=== PATIENT | male | born 1955 | race Hispanic/Latino ===

== ENCOUNTER 2021-10-31 15:39 | Inpatient (IN) | payer MEDICARE ==
[~2021-10-31] VITALS: Ht 162.6 cm; Wt 55.5 kg
[2021-10-31] MEDS ORDERED: 0.9%NACL 1000ML 1,000 ML IV ONE ×2 (16:00→17:30)
[2021-10-31 16:07] LABS: APPEARANCE,URINE Clear (CLEAR); BILIRUBIN,URINE Negative (NEGATIVE); COLOR,URINE Dark Yellow (YELLOW); GLUCOSE, URINE (UA) Negative (NEGATIVE); KETONES,URINE 15 mg/dL (NEGATIVE); LEUKOCYTE ESTERASE ,URINE Small (NEGATIVE); NITRATE,URINE Negative (NEGATIVE); OCCULT BLOOD,URINE Nonhemolyzed Trace (NEGATIVE); PH,URINE 6.5 (5.0-8.0); PROTEIN,URINE Trace mg/dL (NEGATIVE)
[2021-10-31 16:29] LABS: BASOPHILS % (AUTO) 0.3 % (0.0-5.0); EOSINOPHILS % (AUTO) 1.3 % (0.0-8.0); HEMATOCRIT 30.3 % (42-54); LYMPHOCYTES % (AUTO) 15.4 % (21.0-51.0); MEAN CORPUSCULAR HEMOGLOBIN 36.1 pg (27.0-33.0); MEAN CORPUSCULAR HGB CONC 35.3 g/dL (32.0-36.0); MEAN CORPUSCULAR VOLUME 102.4 fL (79-99); MONOCYTES % (AUTO) 8.5 % (3.0-13.0); NEUTROPHILS % (AUTO) 73.8 % (40.0-77.0); PLATELET COUNT (AUTO) 262 K/uL (130-400); RED BLOOD CELL COUNT(AUTO) 2.96 MIL/uL (4.50-6.20); RED CELL DISTRIBUTION WIDTH 14.4 % (11.0-15.5); WHITE BLOOD COUNT (AUTO) 9.9 K/uL (4.8-10.8)
[2021-10-31 16:31] LABS: BACTERIA,URINE Few /HPF (None Seen); MUCUS,URINE Few LPF (None Seen); SQUAMOUS EPITHELIAL CELL,UR Few /HPF (0-2)
[2021-10-31 16:40] LABS: INR 1.39 (0.85-1.15); PROTHROMBIN TIME 14.7 SEC (9.6-11.6)
[2021-10-31 16:41] LABS: PARTIAL THROMBOPLASTIN TIME 34.5 SEC (26.3-35.5)
[2021-10-31 16:43] LABS: ALBUMIN 2.1 g/dL (3.5-5.0); BILIRUBIN,TOTAL 1.3 mg/dL (0.2-1.0); CREATININE 1.2 mg/dL (0.5-1.5); TOTAL PROTEIN, SERUM 7.5 g/dL (6.0-8.3)
[2021-10-31 16:51] LABS: POTASSIUM 2.5 mmol/L (3.5-5.1)
[2021-10-31] MEDS: POTASSIUM CHLORIDE 10MEQ/100ML 10 MEQ/100 ML ML IV SCH ×4 (17:39→21:13)
[2021-10-31] MEDS ORDERED: LEVOFLOXACIN 750 MG/D5W 150 ML 150 ML IV ONE (18:00)
[2021-10-31] MEDS ORDERED: VANCOMYCIN KIT 1 GM/250 ML IV.KIT IV ONE (18:00)
[2021-10-31] MEDS ORDERED: VANCOMYCIN 1G/250ML KIT 250 ML IV ONE (19:22)
[2021-10-31] MEDS ORDERED: ACETAMINOPHEN 325 MG TAB PO PRN ×2 (19:30)
[2021-10-31] MEDS ORDERED: ONDANSETRON 4MG INJ IV PRN (19:30)
[2021-10-31] MEDS ORDERED: HYDROMORPHONE 0.5 MG SYG (0.5MG/0.5ML) IV PRN (20:00)
[2021-10-31] MEDS ORDERED: FAMOTIDINE 20MG VIAL IV SCH (21:00)
[2021-10-31] MEDS: PANTOPRAZOLE 40 MG/VIAL IVP SCH (21:13)
[2021-10-31 22:26] VITALS: BP 117/58
[2021-10-31 23:22] LABS: HEMATOCRIT 24.9 % (42-54); MEAN CORPUSCULAR HEMOGLOBIN 35.8 pg (27.0-33.0); MEAN CORPUSCULAR HGB CONC 34.5 g/dL (32.0-36.0); MEAN CORPUSCULAR VOLUME 103.8 fL (79-99); RED BLOOD CELL COUNT(AUTO) 2.4 MIL/uL (4.50-6.20); RED CELL DISTRIBUTION WIDTH 14.4 % (11.0-15.5); WHITE BLOOD COUNT (AUTO) 8.4 K/uL (4.8-10.8)
[2021-10-31 23:27] LABS: POTASSIUM 2.3 mmol/L (3.5-5.1)
[2021-10-31] MEDS ORDERED: POTASSIUM CHLORIDE 10% ELIXIR 20 MEQ/15 ML UDCUP ONE (23:28)
[2021-10-31] MEDS ORDERED: LACTATED RINGERS 1000ML 1,000 ML IV SCH (23:30)
[2021-10-31] MEDS ORDERED: LIDOCAINE HCL-MPF 1% 2ML VIAL IV PRN (23:30)
[2021-10-31] MEDS: POTASSIUM CHLORIDE 20MEQ/100ML 100 ML IV PRN (23:52)
[2021-11-01 00:05] VITALS: BP 119/58
[2021-11-01] MEDS: POTASSIUM CHLORIDE 10% ELIXIR 20 MEQ/15 ML UDCUP PO PRN ×4 (00:30→11:47)
[2021-11-01] MEDS: FUROSEMIDE 20MG VIAL IV SCH ×3 (00:30→23:40)
[2021-11-01] MEDS: POTASSIUM CHLORIDE 20MEQ/100ML 100 ML IV PRN ×2 (01:48→04:22)
[2021-11-01] MEDS: KCL 20 MEQ ERTAB PO PRN (02:13)
[2021-11-01 02:42] LABS: BASOPHILS % (AUTO) 0.2 % (0.0-5.0); EOSINOPHILS % (AUTO) 1.3 % (0.0-8.0); LYMPHOCYTES % (AUTO) 10.8 % (21.0-51.0); MEAN CORPUSCULAR HEMOGLOBIN 34.3 pg (27.0-33.0); MEAN CORPUSCULAR HGB CONC 34.8 g/dL (32.0-36.0); MEAN CORPUSCULAR VOLUME 98.4 fL (79-99); MONOCYTES % (AUTO) 8.5 % (3.0-13.0); NEUTROPHILS % (AUTO) 78.6 % (40.0-77.0); PLATELET COUNT (AUTO) 209 K/uL (130-400); RED BLOOD CELL COUNT(AUTO) 2.54 MIL/uL (4.50-6.20); RED CELL DISTRIBUTION WIDTH 14.1 % (11.0-15.5); WHITE BLOOD COUNT (AUTO) 8.4 K/uL (4.8-10.8)
[2021-11-01 02:55] LABS: ALBUMIN 1.7 g/dL (3.5-5.0); INR 1.53 (0.85-1.15); MAGNESIUM 1.6 mg/dL (1.80-2.40); POTASSIUM 3.2 mmol/L (3.5-5.1); TOTAL PROTEIN, SERUM 6.1 g/dL (6.0-8.3)
[2021-11-01 02:56] LABS: PARTIAL THROMBOPLASTIN TIME 37.2 SEC (26.3-35.5)
[2021-11-01] MEDS: MAGNESIUM 2GM PREMIX 50ML 50 ML IV PRN (03:00)
[2021-11-01 03:47] LABS: ERYTHROCYTE SEDIMENTATION RATE 30 MM/HR (0-20)
[2021-11-01 04:00] VITALS: BP 115/61
[2021-11-01] MEDS: LACTULOSE 20 GM/30 ML UDCUP PO SCH ×3 (04:56→20:03)
[2021-11-01 07:23] LABS: MAGNESIUM 2.3 mg/dL (1.80-2.40); POTASSIUM 3.5 mmol/L (3.5-5.1)
[2021-11-01 08:00] VITALS: BP 129/65
[2021-11-01] MEDS ORDERED: 0.9%NACL 1000ML 1,000 ML IV SCH (08:00)
[2021-11-01] MEDS: LEVOFLOXACIN 750 MG/D5W 150 ML 150 ML IV SCH (08:20)
[2021-11-01] MEDS: PANTOPRAZOLE 40 MG/VIAL IVP SCH ×2 (08:21→20:03)
[2021-11-01 11:59] VITALS: BP 121/62
[2021-11-01] MEDS ORDERED: CHLO25CA5 PO (12:38)
[2021-11-01] MEDS ORDERED: FERR-72 PO (12:38)
[2021-11-01] MEDS ORDERED: LACT10SO9 PO (12:38)
[2021-11-01] MEDS ORDERED: MAGN400T53 PO (12:38)
[2021-11-01] MEDS ORDERED: SODI1TAB4 PO (12:38)
[2021-11-01] MEDS ORDERED: LEVO50CA4 PO (12:38)
[2021-11-01] MEDS ORDERED: TAMS-1 PO (12:38)
[2021-11-01] MEDS ORDERED: CEFA1SYR6 IV (12:38)
[2021-11-01] MEDS ORDERED: ACET250T28 PO (12:38)
[2021-11-01] MEDS ORDERED: PANT40TA54 PO (12:38)
[2021-11-01] MEDS ORDERED: DRON10CA5 PO (12:38)
[2021-11-01] MEDS ORDERED: FOLI0.4T6 PO (12:38)
[2021-11-01] MEDS ORDERED: THIA500T3 PO (12:38)
[2021-11-01] MEDS: CALCIUM CARB 500MG PO SCH (15:30)
[2021-11-01 16:00] VITALS: BP 123/60
[2021-11-01] MEDS: FERROUS SULFATE 325 MG TABLET.DR PO SCH (16:43)
[2021-11-01 20:00] VITALS: BP 146/65
[2021-11-01] MEDS: CHLORDIAZEPOXIDE HCL 25 MG CAP PO SCH (20:03)
[2021-11-01] MEDS: MAGNESIUM OXIDE 400 MG TABLET PO SCH (20:03)
[2021-11-01] MEDS: DRONABINOL 2.5 MG CAP PO SCH (20:03)
[2021-11-01] MEDS: TAMSULOSIN HCL 0.4 MG CAP.ER.24H PO SCH (20:03)
[2021-11-01] MEDS ORDERED: PHYTONADIONE 10 MG in 0.9%NACL 50ML 50 ML IVPB STA (20:20)
[2021-11-01] MEDS ORDERED: OCTREOTIDE ACETATE 100 MCG/ML AMP IV STA (20:23)
[2021-11-01] MEDS ORDERED: OCTREOTIDE ACETATE 500 MCG in 0.9%NACL 100ML 97.5 ML IV SCH ×2 (20:30→22:00)
[2021-11-01] MEDS ORDERED: OCTREOTIDE ACETATE 100 MCG/ML AMP IV SCH (20:40)
[2021-11-01] MEDS ORDERED: LACTULOSE 20 GM/30 ML UDCUP PO SCH (21:00)
[2021-11-01] MEDS ORDERED: PANTOPRAZOLE 40 MG TAB DR PO SCH (21:00)
[2021-11-02] VITALS (20 sets, daily range): BP systolic 102–142; BP diastolic 38–79
[2021-11-02 04:49] LABS: BASOPHILS % (AUTO) 0.3 % (0.0-5.0); EOSINOPHILS % (AUTO) 2.5 % (0.0-8.0); HEMATOCRIT 28.8 % (42-54); LYMPHOCYTES % (AUTO) 16.9 % (21.0-51.0); MEAN CORPUSCULAR HEMOGLOBIN 34.6 pg (27.0-33.0); MEAN CORPUSCULAR HGB CONC 32.6 g/dL (32.0-36.0); MEAN CORPUSCULAR VOLUME 105.9 fL (79-99); MONOCYTES % (AUTO) 7.3 % (3.0-13.0); NEUTROPHILS % (AUTO) 72.1 % (40.0-77.0); PLATELET COUNT (AUTO) 206 K/uL (130-400); RED BLOOD CELL COUNT(AUTO) 2.72 MIL/uL (4.50-6.20); RED CELL DISTRIBUTION WIDTH 14.2 % (11.0-15.5); WHITE BLOOD COUNT (AUTO) 6.3 K/uL (4.8-10.8)
[2021-11-02 05:02] LABS: ALBUMIN 1.8 g/dL (3.5-5.0); CREATININE 1.1 mg/dL (0.5-1.5); MAGNESIUM 1.7 mg/dL (1.80-2.40); PHOSPHORUS 3.1 mg/dL (2.5-4.9); POTASSIUM 3.3 mmol/L (3.5-5.1); TOTAL PROTEIN, SERUM 6.5 g/dL (6.0-8.3)
[2021-11-02] MEDS: MAGNESIUM 2GM PREMIX 50ML 50 ML IV PRN (06:18)
[2021-11-02] MEDS: POTASSIUM CHLORIDE 20MEQ/100ML 100 ML IV PRN (06:18)
[2021-11-02] MEDS: LEVOTHYROXINE 50 MCG TABLET PO SCH (06:31)
[2021-11-02] MEDS ORDERED: GLYCOPYRROLATE 1 MG/5 ML SYRINGE ONE (07:37)
[2021-11-02] MEDS ORDERED: PROPOFOL 10 MG/ML 20ML VIAL IV ONE (07:37)
[2021-11-02] MEDS: FOLIC ACID 1 MG TABLET PO SCH (07:43)
[2021-11-02] MEDS: LACTULOSE 20 GM/30 ML UDCUP PO SCH ×4 (07:43→20:34)
[2021-11-02] MEDS: MAGNESIUM OXIDE 400 MG TABLET PO SCH ×2 (07:43→20:34)
[2021-11-02] MEDS: FERROUS SULFATE 325 MG TABLET.DR PO SCH ×2 (07:43→16:12)
[2021-11-02] MEDS: AcetaZOLAMIDE 250 MG TAB PO SCH (07:43)
[2021-11-02] MEDS: CALCIUM CARB 500MG PO SCH (07:43)
[2021-11-02] MEDS: CHLORDIAZEPOXIDE HCL 25 MG CAP PO SCH ×2 (07:43→20:34)
[2021-11-02] MEDS: THIAMINE HCL 100 MG TABLET PO SCH (07:44)
[2021-11-02] MEDS ORDERED: LACTULOSE 20 GM/30 ML UDCUP PO SCH (09:00)
[2021-11-02] MEDS: PANTOPRAZOLE 40 MG/VIAL IVP SCH (09:20)
[2021-11-02] MEDS: LEVOFLOXACIN 750 MG/D5W 150 ML 150 ML IV SCH (09:20)
[2021-11-02] MEDS: KCL 20 MEQ ERTAB PO PRN ×2 (10:25→12:09)
[2021-11-02] MEDS: FUROSEMIDE 20MG VIAL IV SCH ×2 (12:09→23:51)
[2021-11-02] MEDS ORDERED: PANTOPRAZOLE 40 MG TAB DR PO SCH (16:30)
[2021-11-02] MEDS: TAMSULOSIN HCL 0.4 MG CAP.ER.24H PO SCH (20:34)
[2021-11-02] MEDS: DRONABINOL 2.5 MG CAP PO SCH (20:34)
[2021-11-02] MEDS: PANTOPRAZOLE 40 MG TAB DR PO SCH (20:34)
[2021-11-03] VITALS (7 sets, daily range): BP systolic 98–119; BP diastolic 44–71
[2021-11-03 05:06] LABS: BASOPHILS % (AUTO) 0.7 % (0.0-5.0); EOSINOPHILS % (AUTO) 2.3 % (0.0-8.0); HEMATOCRIT 27.5 % (42-54); LYMPHOCYTES % (AUTO) 19.5 % (21.0-51.0); MEAN CORPUSCULAR HEMOGLOBIN 33.6 pg (27.0-33.0); MEAN CORPUSCULAR HGB CONC 32.4 g/dL (32.0-36.0); MEAN CORPUSCULAR VOLUME 103.8 fL (79-99); MONOCYTES % (AUTO) 9.1 % (3.0-13.0); NEUTROPHILS % (AUTO) 67.4 % (40.0-77.0); PLATELET COUNT (AUTO) 211 K/uL (130-400); RED BLOOD CELL COUNT(AUTO) 2.65 MIL/uL (4.50-6.20)
[2021-11-03 05:26] LABS: ALBUMIN 1.8 g/dL (3.5-5.0); CREATININE 1.2 mg/dL (0.5-1.5); MAGNESIUM 1.3 mg/dL (1.80-2.40); POTASSIUM 3.3 mmol/L (3.5-5.1); TOTAL PROTEIN, SERUM 6.6 g/dL (6.0-8.3)
[2021-11-03] MEDS: POTASSIUM CHLORIDE 10% ELIXIR 20 MEQ/15 ML UDCUP PO PRN ×2 (05:46→08:58)
[2021-11-03] MEDS: MAGNESIUM 2GM PREMIX 50ML 50 ML IV PRN (05:46)
[2021-11-03] MEDS: LEVOTHYROXINE 50 MCG TABLET PO SCH (05:47)
[2021-11-03] MEDS: CALCIUM CARB 500MG PO SCH (08:57)
[2021-11-03] MEDS: THIAMINE HCL 100 MG TABLET PO SCH (08:57)
[2021-11-03] MEDS: CHLORDIAZEPOXIDE HCL 25 MG CAP PO SCH (08:57)
[2021-11-03] MEDS: MAGNESIUM OXIDE 400 MG TABLET PO SCH (08:57)
[2021-11-03] MEDS: LEVOFLOXACIN 750 MG/D5W 150 ML 150 ML IV SCH (08:58)
[2021-11-03] MEDS: FOLIC ACID 1 MG TABLET PO SCH (08:58)
[2021-11-03] MEDS: PANTOPRAZOLE 40 MG TAB DR PO SCH (08:58)
[2021-11-03] MEDS: FERROUS SULFATE 325 MG TABLET.DR PO SCH (08:58)
[2021-11-03] MEDS: LACTULOSE 20 GM/30 ML UDCUP PO SCH ×2 (08:58→11:33)
[2021-11-03] MEDS: AcetaZOLAMIDE 250 MG TAB PO SCH (08:58)
[2021-11-03] MEDS ORDERED: OS500 PO (10:56)
[2021-11-03] MEDS: FUROSEMIDE 20MG VIAL IV SCH (11:33)
[2021-11-03] MEDS ORDERED: LEVO750T46 PO (11:33)
== END 2021-11-03 17:47 | DRG 871 ==
LOC: EDH 15:39 → INTOOBSV 19:08 → EDHIP 19:08 → OBSVTOIN 19:08 → 4AH 21:35
PROVIDERS: ADMIT Hospitalist; ATTEND Hospitalist
PROC: 0DJ08ZZ Inspection of Upper Intestinal Tract, Via Natural or Artificial Opening Endoscopic (ICD-10-PCS; principal; 2021-11-02)
DX: A41.9 Sepsis, unspecified organism (principal); E43 Unspecified severe protein-calorie malnutrition; G93.41 Metabolic encephalopathy; K25.4 Chronic or unspecified gastric ulcer with hemorrhage; N39.0 Urinary tract infection, site not specified; K76.6 Portal hypertension; K70.30 Alcoholic cirrhosis of liver without ascites; Z20.822 Contact with and (suspected) exposure to COVID-19; E11.9 Type 2 diabetes mellitus without complications; I10 Essential (primary) hypertension; J44.9 Chronic obstructive pulmonary disease, unspecified; E87.6 Hypokalemia; D64.9 Anemia, unspecified; Z83.3 Family history of diabetes mellitus; D69.6 Thrombocytopenia, unspecified; E83.51 Hypocalcemia; K70.40 Alcoholic hepatic failure without coma; Z79.899 Other long term (current) drug therapy; Z68.21 Body mass index [BMI] 21.0-21.9, adult; Z88.0 Allergy status to penicillin
CPT/HCPCS: 36415; 43235; 71045; 74176; 76700; 80048; 80053; 81001; 82140; 82270; 82330; 82948; 83605; 83735; 83880; 84100; 84132; 84145; 84484; 85025; 85027; 85610; 85651; 85730; 87040; 87635; 92610; 93005; 99291; A4606; C9113; G0378; J1940; J1956; J2354; J2405; J2704; J3370; J3430; J3475; J3480; J3490; J7030; J7120; Q0167

== ENCOUNTER 2024-05-28 15:38 | Emergency (ER) | payer OTHER, MEDICARE ==
[~2024-05-28 15:38] MED LIST: ACET250T28 PO; CEFA1SYR6 IV; CHLO25CA5 PO; DRON10CA8 PO; FERR-72 PO; FOLI0.4T6 PO; LACT10SO9 PO; LEVO50CA4 PO; LEVO750T68 PO; MAGN400T53 PO; OS500 PO; PANT40TA54 PO; SODI1TAB4 PO; TAMS-1 PO; THIA500T3 PO
[2024-05-28] MEDS ORDERED: AMIOdarone 150MG VIAL IV ONE (15:39)
[2024-05-28] MEDS ORDERED: SODIUM BICARB 50MEQ 50ML VIAL 50 ML ONE ×2 (15:46→15:51)
== END 2024-05-28 18:46 ==
LOC: EDH 15:38
DX: I46.9 Cardiac arrest, cause unspecified (principal); K92.2 Gastrointestinal hemorrhage, unspecified; E11.9 Type 2 diabetes mellitus without complications; I10 Essential (primary) hypertension; J44.9 Chronic obstructive pulmonary disease, unspecified; Z79.899 Other long term (current) drug therapy; Z88.0 Allergy status to penicillin
CPT/HCPCS: 99291; 92950; 31500; J3490 ×4; J0171; J0282